=== PATIENT | female | born 1985 | race Hispanic/Latino ===

== ENCOUNTER 2021-08-19 12:08 | Emergency (ER) | payer MEDICAID, SELFPAY ==
[2021-08-19] MEDS ORDERED: Ketorolac Tromethamine 60 MG/2 ML VIAL ONE (12:33)
[2021-08-19] MEDS ORDERED: Lidocaine 1% PF 5 ML VIAL ONE (12:33)
== END 2021-08-19 13:44 | disposition home or self-care (01) ==
LOC: BURERS 12:08
DX: S61.411A Laceration without foreign body of right hand, initial encounter (principal); W25.XXXA Contact with sharp glass, initial encounter
CPT/HCPCS: 12001; J1885